=== PATIENT | male | born 1955 | race Two or more races ===

== ENCOUNTER → 2017-01-16 | Outpatient (CLI) | payer MEDICAID ==
--- NOTE | 2017-01-16 14:25 | REP ---
SCROTAL ULTRASOUND: Real-time sonographic evaluation of the scrotum and contents performed. Testicles normal in size and echotexture, right testicle measuring 4.3 x 2.2 x 3.4 cm and left testicle 4.7 x 2.0 x 3.1 cm. There is no testicular mass or torsion. Blood flow is seen in each testicle with duplex Doppler evaluation, RI of the right testicle 0.67, left testicle 0.50. Cyst in the head of the right epididymis measures 1.5 x 1.2 cm. Multiple cysts are seen in the head of the left epididymis, the largest 7 mm in diameter. Mildly prominent venous structures posteriorly bilaterally may represent varicoceles, measuring up to 3 mm in diameter. IMPRESSION: No testicular mass or torsion. Bilateral epididymal cysts. Small bilateral varicoceles. Signed by Anselmo Sharma MD 01/16/2017 05:40 P
== END ==
LOC: M SMT 12:05
PROVIDERS: ATTEND Nurse Practitioner Family
DX: N50.9 Disorder of male genital organs, unspecified (principal)